=== PATIENT | female | born 1985 | race Caucasian/White ===

== ENCOUNTER 2016-03-08 13:56 | Inpatient (IN) | payer OTHER ==
[~2016-03-08] VITALS: Ht 157.5 cm; Wt 92.5 kg
[2016-03-08] MEDS ORDERED: Carboprost 250 mCg/mL Inj IM PRN (17:35)
[2016-03-08] MEDS ORDERED: fentaNYL-PF 50 mCg/mL 2 mL Inj IVPUSH PRN (17:35)
[2016-03-08] MEDS ORDERED: Oxytocin 10 Unit/mL Inj IM PRN (17:35)
[2016-03-08] MEDS ORDERED: Hemorrhage Kit, Post Partum XX ONE (17:35)
[2016-03-08] MEDS ORDERED: Sodium Chloride LOK Flush 10 mL Syringe IVFLUSH PRN (17:35)
[2016-03-08] MEDS ORDERED: Methylergonovine 0.2 mg/mL Inj IM PRN (17:35)
[2016-03-08] MEDS ORDERED: Oxytocin 30 Units/500 mL LR 30 UNITS in IV Premix 1 EACH IV PRN ×2 (17:35→20:00)
--- NOTE | 2016-03-08 17:39 | DRSVH ---
PROCEDURE: US OB BIOPHYSICAL PROFILE AND UMBILICAL DOPPLER INDICATIONS: NON REASSURING HEART TONES OUTSIDE/PRIOR DATING DATA: Last menstrual period (LMP): 06/06/15. LMP-based estimated date of delivery (SUMI): 03/12/16. First dating scan (date and location): 08/04/15. Estimated date of delivery (SUMI) from first dating scan: 03/08/16. TECHNIQUE: Real-time scanning was performed of the fetus for biophysical profile, with image documentation. Col or and pulse Doppler interrogation was also performed of the umbilical artery near its insertion into the placenta. COMPARISON: [facility], US, US OB>14 WKS ANATOMY COMP, 10/30/2015, 11:39. FINDINGS: General: A single living intrauterine gestation is present. Presentation: Vertex Placenta: Placental position is posterior fundal, without previa. OB-SOCIAL WORK JOB TITLES Ultrasound Procedure Report Summary Fetus Summary Heart Rate: 142 bpm Gestational Age from initial dating scan: 40 weeks, 0 days Findings(Amniotic Sac) Amniotic Fluid Index (BREANN): 7 cm Pelvis and Uterus Cervix Length (Mean): Not well seen Biophysical Profile Amniotic Fluid Volume: 2 Breathin Gross Body Movement: 2 Tone: 2 Biophysical Profile Sum Score: 8 Findings(Pelvic Vascular Structure) Umbilical Artery S/D Ratio: 2.0, 2.2, 1.9 IMPRESSION: 1. Single living intrauterine in vertex position redemonstrated. 2. Amniotic fluid index within normal limits. 3. Normal biophysical profile score 8/8. 4. Cord Doppler within normal limits with preserved diastolic flow. Dictated by: Bon Junior M.D. on 03/08/2016 at 17:37 Approved by: Bon Junior M.D. on 03/08/2016 at 17:37
[2016-03-08 17:42] LABS: Mean Corpuscular Volume 95.5 fL (81-100)
[2016-03-08] MEDS ORDERED: RANI150C4 PO (18:18)
[2016-03-08] MEDS: Lactated Ringer's 1,000 ML IV PRN (22:17)
--- NOTE | 2016-03-08 23:35 | HP ---
[address] [address] HISTORY AND PHYSICAL PATIENT: HAZEL ROTHMAN : 1985 MR#: [id number] ADMIT: 03/08/2016 JOB ID: [id number] HISTORY OF PRESENT ILLNESS: The patient is a 30-year-old, 1, para 0, at 40 weeks today, comes to Labor and Delivery with complaint of contractions. As per patient, contractions started gradually since last midnight and were becoming more frequent and intense. The patient reports good movements. She denies vaginal spotting, abnormal vaginal discharge. Her care was relatively uncomplicated. ALLERGIES: NKDA. PAST FAMILY HISTORY: Noncontributory. SOCIAL HISTORY: Patient denies alcohol, drugs and cigarette use. LABORATORIES: She is blood group and type O-positive. Varicella immune. Rubella nonimmune. Group B strep culture was negative. PHYSICAL EXAMINATION: While on the monitor, the patient is having contractions every 3-5 minutes. heart rate tracing is reactive with occasional mild variable decelerations with good recovery. Patient's vital signs: Blood pressure 132/76, respiratory rate 18, temperature 36.7. HEENT: PERRLA. Chest and lungs: Good respiratory effort. Clear bilaterally. Cardiovascular: Regular rate and rhythm. Abdomen: Gravid, nondistended, nontender, tender during contractions. Extremities: Trace pitting edema. MANAGER CRISIS exam: The cervix is 1 cm dilated, 80% effaced, station -2. The last time the patient was checked in the clinic on March 03, 2016, 5 days ago, the cervix was noneffaced and nondilated. The patient was re-examined two hours later and found to have diffuse effacement to 90%, same dilation, same station. heart rate tracing is reactive, but she is still having mild variable decelerations every few minutes lasting for less than 30 seconds. ASSESSMENT AND PLAN: The patient is a 30-year-old, 1, para 0, at 40 weeks today, comes in latent stage of labor. heart rate tracing reactive but showing mild occasional variable decelerations. The patient is being admitted for augmentation of labor. Different methods of cervical ripening were discussed with the patient. She agrees for cervical ripening balloon. Pain management will be provided with fentanyl. Epidural will be given as per patient's request. IV fluid started with Lactated Ringer's at 125 mL/h. Labs were sent. Will continue with continuous heart rate monitoring. Will expect spontaneous vaginal delivery. MTDD
[2016-03-09] MEDS ORDERED: Lactated Ringer's 500 ML IV ONE (04:27)
[2016-03-09] MEDS ORDERED: EPHEDrine Sulfate 50 mg/mL Inj IVPUSH PRN (04:30)
[2016-03-09] MEDS ORDERED: Atropine 1 mg/10 mL (Code) Syringe IVPUSH PRN (04:30)
[2016-03-09] MEDS ORDERED: Ondansetron 2 mg/mL 2 mL Inj IVPUSH PRN (04:30)
--- NOTE | 2016-03-09 05:07 | PCM.HPANE ---
Patient Data Surgeon Admitting Provider:Saad Rebolledo MD Attending Provider:Saad Rebolledo MD Primary Care Physician:Izzy Other Provider:Travis Kuhn Anesthesia Reason for Visit Term Early Labor TERM EARLY LABOR Ht/WT & BMI Body Mass Index Allergies Coded Allergies: No Known Allergies (Unverified , 03/08/16) Medications Reported Medications Ranitidine 150 Mg [id number] Mg PO DAILY Ref 0 03/08/16 Stop/Bang Risk Assessment Category Category 1A: Patient has history of documented sleep apnea, and HAS NOT received any narcotic, sedative or anesthesia administration during this stay. Category 1B: Patient has history of documented sleep apnea, and HAS received any narcotic , sedative or anesthesia administration during this stay Category 2: Patient has SUSPECTED Obstructive Sleep Apnea, and HAS received any narcotic , sedative or anesthesia administration during this stay. Category 3: Patient has SUSPECTED Obstructive Sleep Apnea and HAS NOT received narcotic, sedative or anesthesia administration during this stay. Category 4: Outpatient in Procedural Areas with known sleep apnea or who screen positive for High Risk via the STOP/BANG questionnaire. Exam Exam General Appearance: Alert, Oriented X3, Cooperative, No Acute Distress HEENT/AIRWAY: MP 2 Lungs: Clear to Auscultation Heart: Exam Unremarkable Meds/Labs/Diagnostics Labs Test 03/08/16 15:00 White Blood Count 15.0th/mm3 (3.8-10.1) Red Blood Count 4.40mil/mm3 (3.90-5.20) Hemoglobin 14.1g/dL (12.0-15.6) Hematocrit 42.0% (35.0-46.0) Mean Corpuscular Volume 95.5fL (81-100) Mean Corpuscular Hemoglobin 32.0pg (27.0-35.0) Mean Corpuscular Hemoglobin Concent 33.6% (32.0-37.0) Red Cell Distribution Width 13.0% (12.3-15.4) Platelet Count 181bil/L (150-400) Hold Purple Top Tube Received (Received) Plan Impression Patient chart reviewed, patient interviewed and anesthestic plan with risks, benefits, and alternatives discussed, and informed consent obtained. ASA Physical Status: ASA2 Mod Systemic Disease Anesthetic Plan: Epidural Bene/Risks/Altern/Consents: Yes HP Complete Prior to Induction: Yes Romero Yap MD Mar 09, 2016 04:27
[2016-03-09] MEDS ORDERED: EPHEDrine/NS 5 mg/mL 5 mL Syringe ONE (05:22)
[2016-03-09] MEDS: Lactated Ringer's 1,000 ML IV SCH ×2 (07:49→14:20)
[2016-03-09] MEDS ORDERED: Sodium Chloride LOK Flush 10 mL Syringe IVFLUSH SCH (08:30)
[2016-03-09] MEDS: Lactated Ringer's 1,000 ML IV PRN (09:28)
--- NOTE | 2016-03-09 11:13 | PCM.PNOBIP ---
Subjective Date of Service Mar 09, 2016 Delivery plan: Spontaneous Vaginal Delivery Subjective 30 year old at 40 weeks, 1 day (SUMI by 9 week US 03/08/16, SUMI by LMP ), Presented to the [facility] for augmentation of labor. Pt is GBS negative, O positive and rubella non immune. Pt presented on the morning of 03/08/2016 at 02 :50. She had 5-8 min between contractions which were lasting 30-50 seconds. At that time the FHR was baseline at 135 with moderate variability and category 1 tracing. Fentanyl was given and augmentation of labor was initiated with a cervical balloon. At 04:13 Balloon fell out while Pt was using the toilet. At that time she was 5 cm and had positive rupture of her membranes producing a small amount of fluid with no blood. Contractions remained 5-10 min apart and were lasting 60 seconds. Pt received an epidural a little before 5 am, at 05: 55 Pt's baby had a period prolonged deceleration lasting approximally 13 minuets. HR was reported to have fallen to 60 and mother blood pressure dropped to 84/52. A Amnio infusion was given at 500ml followed by a 150ml/hr drip. Fetus had a couple more brief late decelerations with no more reported events at time of documentation. At this time mother also received ephedrine with stabilization of her hemodynamic state. At time of dictation BP: 118/68 and HR 64, FHR 148 with category 1 tracing. Oxytocin was initiated a little before 7am to help progress labor. US Biophysical profile showed vertex presentation, posterior fundal placental position without previa. The amniotic fluid index and cord Doppler was within normal limits. Pain Management: Epidural, Good Pain Control Group B Strep Results: Negative Rubella: Non-Immune Blood Type: O RH Type: Positive Labs Laboratory Tests 03/08/16 15:00: White Blood Count 15.0, Red Blood Count 4.40, Hemoglobin 14.1, Hematocrit 42.0, Mean Corpuscular Volume 95.5, Mean Corpuscular Hemoglobin 32.0, Mean Corpuscular Hemoglobin Concent 33.6, Red Cell Distribution Width 13.0, Platelet Count 181, Hold Purple Top Tube Received Exam Vital Signs Vital Signs 5-10 min between contractions, lasting 60 seconds. VS: BP: 118/68, HR, 64, RR 20. Vital Signs: VS reviewed, stable Heart Tracings Heart Tones Baseline 140 bpm Heart Rate Variability: Moderate (6-25) Heart Rate Category: I Tocometry/IUPC Contraction frequency in minutes: 5-10 MVUs: Sterile Vaginal Exam Cervical Dilation: 5 cms Cervical Effacement: 50 % Exam Abdomen: Fundus firm Extremities: Normal pulses, No tenderness/swelling Lungs: Clear to Auscultation, Normal Air Movement Heart: Exam Unremarkable, Regular Rate/Rhythm General: Alert, Oriented X3, Cooperative, No Acute Distress OB Intrapartum Assessment/Plan Assessment 30 female in active labor. Anticipate vaginal delivery today. Intrapartum plan: Continue expected management, Start pitocin Intrapartum Pain Management: Epidural Pain Evaluation: Adequate Pain Control Attending Statement The patient was seen and examined together with Dr. alonzo on 03/09/2016 and I agree with the history, exam and plan as outlined in the note above. / MD ARMANDO Rutherford GILES A DO Mar 09, 2016 07:38 Yonathan Fernandes MD Apr 14, 2016 16:33
[2016-03-09] MEDS: fentaNYL 2 mCg/mL-Bupiv 0.125% 100 ML EPIDURAL SCH ×2 (11:20→16:47)
--- NOTE | 2016-03-09 20:46 | PCM.OBVAG ---
Vaginal Delivery Date of Service Mar 09, 2016 Pre Operative Diagnosis Pre Operative Diagnosis 1. 40w1d gestation 2. Induction of labor Post Operative Diagnosis Post Operative Diagnosis Same Procedure Obstetical Procedure: Normal Spontaneous Vaginal Delivery Ordinary Seaman/Astrophysics Teacher Provider and Astrophysics Teacher: Yonathan Fernandes MD Resident: Hoda Tao DO PGY1 Indication for Procedure Indication for Procedure Iqra is a 30 y/o G1 who presented to L&D on 03/08/2016 at 40 weeks gestation complaining of contractions. She was not in active labor, but noted to have variable decelerations on monitoring. Decision was made for admission and induction. She had a cervical ripening with a balloon. Early am of 03/09 it came out. She had an epidural placed then AROM performed. She had variables and following drop in blood pressure after epidural, had a prolonged deceleration recovered with Dr. Rebolledo with ephedrine. She then had amnioinfusion initiated. Tracing recovered. Pitocin initiated. She progressed normally through labor and was found to be complete around 17:30. Findings Findings: No vaginal, cervical or perineal lacerations. Bilateral small labial lacerations noted. Obstetrical Findings: , Cord (3 Vessel), Weight ( 3465 grams), Presentation (BARBRA), 1 minute (8), 5 minutes (9), Placenta (Intact/ Normal) Analgesia/Medications Obstetrical Anesthesia: Epidural Procedure Details Procedure Details A sterile drape was placed under patient's buttocks. With expulsive efforts, she delivered a head BARBRA over intact perineum. With additional expulsive effort, shoulders did not delivery. Allowing for better restitution revealed transverse shoulders. With additional expulsived efforts with baby turned so the right shoulder was anterior and then the baby quickly delivered. Minimal to almost no traction was used. The cord was cut and clamped after about 20sec and handed to waiting nurse. Cord blood collected. IV pitocin started. The placenta delivered spontaneously intact. Uterine message performed and full bladder and brisk bleeding noted, then uterus firmed. Betadine used for sterilization, then straight catheterization performed. No perineal, vaginal or cervical lacerations noted. Bilateral small labial lacerations with some bleeding noted. They were repaired using 3-0 vicryl. The patient tolerated the procedure well. She and baby were stable in the room. Sponge, needle and instrument counts correct x 2 at the close of the procedure. Specimen Placenta was NOT sent. IV Intake/Output Catheters: Straight (about 150mL) Blood Loss & Administration Estimated Blood Loss: 400 (mL) Post Procedure Plan Post delivery Condition: Mom stable, Baby stable to nursery Yonathan Fernandes MD Mar 09, 2016 20:46
[2016-03-09] MEDS ORDERED: Lactated Ringer's 1,000 ML IV SCH (20:47)
[2016-03-09] MEDS ORDERED: Oxytocin 10 Unit/mL Inj IM PRN (20:50)
[2016-03-09] MEDS ORDERED: Oxytocin 30 Units/500 mL LR 30 UNITS in IV Premix 1 EACH IV PRN (20:50)
[2016-03-09] MEDS ORDERED: Witch Hazel-Glycerin Pads TOPICAL PRN (20:50)
[2016-03-09] MEDS ORDERED: HYDROcodone-APAP 5-325 mg Tablet PO PRN (20:50)
[2016-03-09] MEDS ORDERED: LANOlin HPA 7 Gm Ointment TOPICAL PRN (20:50)
[2016-03-09] MEDS ORDERED: Measles-Mumps-Rubella Vaccine 0.5 mL Inj SUBQ ONE (20:50)
[2016-03-09] MEDS ORDERED: Carboprost 250 mCg/mL Inj IM PRN (20:50)
[2016-03-09] MEDS ORDERED: Benzocaine (Dermoplast) 20% 60 Gm Spray TOPICAL PRN (20:50)
[2016-03-09] MEDS ORDERED: Hemorrhage Kit, Post Partum XX ONE (20:50)
[2016-03-09] MEDS ORDERED: Methylergonovine 0.2 mg/mL Inj IM PRN (20:50)
--- NOTE | 2016-03-09 21:52 | PCM.ANEP1 ---
Bad tablePACU Phase 1 Assessment Anesthetic Administered: Epidural Level of Alertness: Awake, talking Pain: No Pain Scale Score: 5 Nausea or Vomiting: No Oxygen Delivery: Room Air Lungs: Clear to Auscultation, Normal Air Movement
--- NOTE | 2016-03-09 21:52 | PCM.ANEP2 ---
Post Anesthesia Evaluation ASA/CMS Post Anesthesia Date of Service: Mar 09, 2016 VS in Patient's Normal Range?: Yes Resp Stable; Airway Patent?: Yes CV Function & Hydration Stable: Yes Mental Status Recovered?: Yes Pain control Satisfactory?: Yes N/V Control Satisfactory?: Yes Amadou Neves MD Mar 09, 2016 21:52
--- NOTE | 2016-03-10 07:59 | PCM.PNOBPP ---
Subjective Date of Service Mar 10, 2016 Post : Spontaneous Vaginal Delivery Subjective 30yo G1 now P1 delivered a term via normal spontaneous vaginal delivery. Reports doing well this morning with some bleeding and the occasional gush with movement. She is able to get up on her own and is only taking ibuprofen for pain. Lochia: Heavy Pain Management: PO pain meds, Good Pain Control Gastrointestinal: Good Appetite, No N/V, Passing Flatus Postop Activity: Ambulating Independently Group B Strep Results: Negative Rubella: Non-Immune Blood Type: O RH Type: Positive Labs Laboratory Tests 03/08/16 15:00: White Blood Count 15.0, Red Blood Count 4.40, Hemoglobin 14.1, Hematocrit 42.0, Mean Corpuscular Volume 95.5, Mean Corpuscular Hemoglobin 32.0, Mean Corpuscular Hemoglobin Concent 33.6, Red Cell Distribution Width 13.0, Platelet Count 181, Hold Purple Top Tube Received Exam Vital Signs Vital Signs: VS reviewed, stable Exam Abdomen: Fundus firm, Abdomen soft : Voiding without difficulty Extremities: Normal pulses, Edema 1+ Lungs: Clear to Auscultation, Normal Air Movement Heart: Regular Rate/Rhythm, No Murmurs/Rubs/Gallops General: Alert, Oriented X3 OB Post Assessment/Plan Assessment 30yo G1 now P1 delivered a term infant via normal spontaneous vaginal delivery. Doing well, will continue to monitor patient for bleeding. Problems: (1) (normal spontaneous vaginal delivery) Plan: normal care Status: Acute ICD Code: O80 (2) Qualifiers: Weeks of gestation: 18 weeks Qualified Code: Z3A.18 - 18 weeks gestation of Status: Resolved ICD Code: Z33.1 (3) Rubella nonimmune status, delivered, current hospitalization Plan: MMR vaccine given Status: Acute ICD Code: O99.89 Pain Management: Ibuprofen Pain Evaluation: Adequate Pain Control Post plan: Continue routine post care, Anticipate discharge home today Plan: Monitor for continued or abnormal bleeding, repeat CBC without abnormal drop in hemaglobin, discharge home. JOYCE ESCAMILLA DO Mar 10, 2016 07:20
[2016-03-10 08:20] LABS: Mean Corpuscular Hemoglobin 31.6 pg (27.0-35.0)
[2016-03-10] MEDS ORDERED: ASCO-294 PO (08:56)
[2016-03-10] MEDS ORDERED: FERR-83 PO (08:56)
[2016-03-10] MEDS ORDERED: DOCU-41 PO (08:56)
[2016-03-10] MEDS ORDERED: IBUP800T28 PO (08:56)
--- NOTE | 2016-03-10 12:42 | PCM.DIOB ---
Obstetrical Disch Instruction Date of Service: Mar 10, 2016 Dates of Hospitalization Date of Hospital Admission Mar 08, 2016 at 17:35 Providers Admitting Physician: Saad Rebolledo MD Primary Care Physician: Noptheresa Attending Physician: Saad Rebolledo MD Discharge Diagnosis Discharge Diagnosis Normal Spontaneous Vaginal Delivery Post Operative diagnosis Normal Spontaneous Vaginal Delivery Problems: Diet Discharge Diet: No restrictions Activity Discharge Activity-General: Pelvic Rest for 6 weeks, Balance rest and activity Dressing and Incisional Care Hygiene: May shower Additional Instructions Discharge Instructions Please take the iron and vitamin c together for your anemia for the next 30 days. Continue to take your vitamin as well. Iron can give you constipation so you have also been given a prescription for docusate to keep you regular. Be sure to follow up in 6 weeks at [facility]. Pelvic rest for 6 weeks (nothing per vagina including intercourse, tampons) If you have a fever greater than 100.4, please call [facility]. There is always someone procurement professional logistics to talk to. If you have an increase in bleeding, call [facility]. If you have a lot of bleeding suddenly, especially if you have symptoms of dizziness & weakness with it, get emergency help. When you see [facility] in two weeks, you will be informed of the results of all the labs. If you start experiencing extreme depression, especially if you feel that you are a danger to yourself or your family, seek emergency help. You have been through a lot -- BE SURE TO TAKE CARE OF YOURSELF. Follow Up Plan Follow-up Provider (F9): Yonathan Fernandes MD Follow-up appointment: Weeks (6) JOYCE ESCAMILLA DO Mar 10, 2016 09:04
--- NOTE | 2016-03-10 12:59 | PCM.DC.OB ---
Obstetrical Discharge Summary Date of Service Mar 10, 2016 Date of hospital admission Mar 08, 2016 at 17:35 Date of Discharge: Mar 10, 2016 Providers Admitting Physician: Saad Rebolledo MD Primary Care Physician: Izzy Attending Physician: Saad Rebolledo MD Diagnosis at Time of Discharge Normal Spontaneous Vaginal Delivery Problems: (1) (normal spontaneous vaginal delivery) Plan: normal care Status: Acute ICD Code: O80 (2) Qualifiers: Weeks of gestation: 40 weeks Qualified Code: Z3A.40 - 40 weeks gestation of Status: Resolved ICD Code: Z33.1 Invasive procedures Normal Spontaneous Vaginal Delivery Date of Procedure: Mar 09, 2016 Brief History and Physical: The patient is a 30-year-old, 1, para 0, at 40 weeks on day of admission , comes to Labor and Delivery with complaint of contractions. care was relatively uncomplicated. Physical exam on day of discharge: Vital signs stable and normal. Well-appearing, well-nourished heart regular rate and rhythm no murmurs. Lungs clear to auscultation bilaterally with good air movement abdomen soft, uterine fundus firm. 1+ edema in bilateral lower extremities. Appropriate mood and affect. Hospital Course: 30-year-old G1 presented to [facility] with complaints of contractions. heart tracing was showing mild variable decelerations. She was admitted for augmentation of labor including cervical ripening with balloon dilation and Pitocin. Labor progressed, she delivered a term via spontaneous vaginal delivery. course was normal. She will be discharged to board status with eventual return home. Ascorbate Calcium (Vitamin C) 500 Mg Tablet 500 MG PO DAILY Prescribed by: JOYCE ESCAMILLA DO Docusate Sodium (Colace) 100 Mg Capsule 100 MG PO DAILY PRN PRN For Constipation Prescribed by: JOYCE ESCAMILLA DO Ferrous Sulfate (Ferrous Sulfate) 325 Mg Tablet 325 MG PO DAILY Prescribed by: JOYCE ESCAMILLA DO Ibuprofen (Ibuprofen) 800 Mg Tablet 800 MG PO Q6H PRN PRN For Pain Prescribed by: JOYCE ESCAMILLA DO Ranitidine (Ranitidine) 150 Mg Capsule 150 MG PO DAILY (Reported) Discharge Medications: 1. Ibuprofen 2. Colace 3. Iron 4. Vitamin C Disposition Discharge to boarder Follow-[facility] plan [facility] Discharge Diet: No restrictions Discharge Activity-General: Pelvic Rest for 6 weeks, Balance rest and activity Patient instructions Please take the iron and vitamin c together for your anemia for the next 30 days. Continue to take your vitamin as well. Iron can give you constipation so you have also been given a prescription for docusate to keep you regular. Be sure to follow up in 6 weeks at [facility]. Pelvic rest for 6 weeks (nothing per vagina including intercourse, tampons) If you have a fever greater than 100.4, please call [facility]. There is always someone paper cone machine operator to talk to. If you have an increase in bleeding, call [facility]. If you have a lot of bleeding suddenly, especially if you have symptoms of dizziness & weakness with it, get emergency help. When you see [facility] in two weeks, you will be informed of the results of all the labs. If you start experiencing extreme depression, especially if you feel that you are a danger to yourself or your family, seek emergency help. You have been through a lot -- BE SURE TO TAKE CARE OF YOURSELF. JOYCE ESCAMILLA DO Mar 10, 2016 12:59
[2016-03-10] MEDS ORDERED: Measles-Mumps-Rubella Vaccine 0.5 mL Inj SUBQ ONE (18:15)
[2016-03-10 18:54] LABS: Mean Corpuscular Hemoglobin 31.7 pg (27.0-35.0); Mean Corpuscular Volume 98.2 fL (81-100)
--- NOTE | 2016-03-10 19:37 | PCM.DIOB ---
MIKE HERNANDEZ DO 03/10/16 1937: Obstetrical Disch Instruction Dates of Hospitalization Date of Hospital Admission Mar 08, 2016 at 17:35 Providers Admitting Physician: Saad Rebolledo MD Primary Care Physician: Nopcp Attending Physician: Saad Rebolledo MD Discharge Diagnosis Discharge Diagnosis Normal Spontaneous Vaginal Delivery Post Operative diagnosis Normal Spontaneous Vaginal Delivery Problems: (1) (normal spontaneous vaginal delivery) Status: Acute ICD Code: O80 (2) Qualifiers: Weeks of gestation: 18 weeks Qualified Code: Z3A.18 - 18 weeks gestation of Status: Resolved ICD Code: Z33.1 Diet Discharge Diet: No restrictions Activity Discharge Activity-General: Pelvic Rest for 6 weeks, Balance rest and activity Dressing and Incisional Care Hygiene: May shower Additional Instructions Discharge Instructions Please take the iron and vitamin c together for your anemia for the next 30 days. Continue to take your vitamin as well. Iron can give you constipation so you have also been given a prescription for docusate to keep you regular. Be sure to follow up in 6 weeks at [facility]. Pelvic rest for 6 weeks (nothing per vagina including intercourse, tampons) If you have a fever greater than 100.4, please call [facility]. There is always someone cleaning professional to talk to. If you have an increase in bleeding, call [facility]. If you have a lot of bleeding suddenly, especially if you have symptoms of dizziness & weakness with it, get emergency help. When you see [facility] in two weeks, you will be informed of the results of all the labs. If you start experiencing extreme depression, especially if you feel that you are a danger to yourself or your family, seek emergency help. You have been through a lot -- BE SURE TO TAKE CARE OF YOURSELF. Follow Up Plan Follow-up Provider (F9): Yonathan Fernandes MD Follow-up appointment: Weeks (6) Kip Thomas MD 03/15/16 0824: Obstetrical Disch Instruction Attending Statement The patient was seen and examined together with Dr. Mike Hernandez and I agree with the history, exam and plan as outlined in the note above. MIKE HERNANDEZ DO Mar 10, 2016 19:37 Kip Thomas MD Mar 15, 2016 08:24
[2016-03-10 19:43] VITALS: BP 121/76; PULSE 87; RESP 16
--- NOTE | 2016-03-10 22:03 | PCM.DC.OB ---
Obstetrical Discharge Summary Date of Service Mar 10, 2016 Date of hospital admission Mar 08, 2016 at 17:35 Date of Discharge: Mar 10, 2016 Providers Admitting Physician: Saad Rebolledo MD Primary Care Physician: Izzy Attending Physician: Saad Rebolledo MD Diagnosis at Time of Discharge Normal Spontaneous Vaginal Delivery Problems: (1) (normal spontaneous vaginal delivery) Plan: normal care Status: Acute ICD Code: O80 (2) Qualifiers: Weeks of gestation: 18 weeks Qualified Code: Z3A.18 - 18 weeks gestation of Status: Resolved ICD Code: Z33.1 Invasive procedures Normal Spontaneous Vaginal Delivery Brief History and Physical: The patient is a 30-year-old, 1, para 0, at 40 weeks on day of admission , comes to Labor and Delivery with complaint of contractions. care was relatively uncomplicated. Physical exam on day of discharge: Vital signs stable and normal. Well-appearing, well-nourished heart regular rate and rhythm no murmurs. Lungs clear to auscultation bilaterally with good air movement abdomen soft, uterine fundus firm. 1+ edema in bilateral lower extremities. Appropriate mood and affect. Hospital Course: 30-year-old G1 [place] [facility] [place] with complaints of contractions. heart tracing was showing mild variable decelerations. She was admitted for augmentation of labor including cervical ripening with balloon dilation and Pitocin. Labor progressed, she delivered a term infant via spontaneous vaginal delivery. course was normal with the exception of some concern for continued bleeding. Bleeding improved within 24 hours . Patient was discharged in Stable condition to follow baby to [facility]. Ascorbate Calcium (Vitamin C) 500 Mg Tablet 500 MG PO DAILY Prescribed by: JOYCE ESCAMILLA DO Docusate Sodium (Colace) 100 Mg Capsule 100 MG PO DAILY PRN PRN For Constipation Prescribed by: JOYCE ESCAMILLA DO Ferrous Sulfate (Ferrous Sulfate) 325 Mg Tablet 325 MG PO DAILY Prescribed by: JOYCE ESCAMILLA DO Ibuprofen (Ibuprofen) 800 Mg Tablet 800 MG PO Q6H PRN PRN For Pain Prescribed by: JOYCE ESCAMILLA DO Ranitidine (Ranitidine) 150 Mg Capsule 150 MG PO DAILY (Reported) Discharge Medications: 1. Ibuprofen 2. Colace 3. Iron 4. Vitamin C Disposition Discharge home Follow-[facility] plan [facility] Discharge Diet: No restrictions Discharge Activity-General: Pelvic Rest for 6 weeks, Balance rest and activity Patient instructions Please take the iron and vitamin c together for your anemia for the next 30 days. Continue to take your vitamin as well. Iron can give you constipation so you have also been given a prescription for docusate to keep you regular. Be sure to follow up in 6 weeks at [facility]. Pelvic rest for 6 weeks (nothing per vagina including intercourse, tampons) If you have a fever greater than 100.4, please call [facility]. There is always someone satellite communications engineer to talk to. If you have an increase in bleeding, call [facility]. If you have a lot of bleeding suddenly, especially if you have symptoms of dizziness & weakness with it, get emergency help. When you see [facility] in two weeks, you will be informed of the results of all the labs. If you start experiencing extreme depression, especially if you feel that you are a danger to yourself or your family, seek emergency help. You have been through a lot -- BE SURE TO TAKE CARE OF YOURSELF. JOYCE ESCAMILLA DO Mar 10, 2016 22:03
== END 2016-03-10 20:30 | disposition home or self-care (01) | DRG 560 ==
LOC: FBCO 13:56 → FBC 17:35
PROVIDERS: ADMIT Legal Medicine; ATTEND Legal Medicine
PROC: 0U7C7ZZ Dilation of Cervix, Via Natural or Artificial Opening (ICD-10-PCS; 2016-03-08)
PROC: 10E0XZZ Delivery of Products of Conception, External Approach (ICD-10-PCS; principal; 2016-03-09)
PROC: 0UQMXZZ Repair Vulva, External Approach (ICD-10-PCS; 2016-03-09)
PROC: 10907ZC Drainage of Amniotic Fluid, Therapeutic from Products of Conception, Via Natural or Artificial Opening (ICD-10-PCS; 2016-03-09)
DX: O71.82 Other specified trauma to perineum and vulva (principal); O76 Abnormality in fetal heart rate and rhythm complicating labor and delivery; Z3A.40 40 weeks gestation of pregnancy; Z37.0 Single live birth

== ENCOUNTER 2016-04-25 09:47 | Emergency (ER) | payer OTHER ==
[~2016-04-25] VITALS: Ht 157.5 cm; Wt 84.1 kg
[~2016-04-25 09:47] MED LIST: ASCO-294 PO; DOCU-41 PO; FERR-83 PO; IBUP800T28 PO; RANI150C4 PO
[2016-04-25 09:49] VITALS: BP 144/89; PULSE 71; RESP 22; O2SAT 98
[2016-04-25] MEDS ORDERED: 0.9% Sodium Chloride 1,000 ML IV ONE (09:56)
--- NOTE | 2016-04-25 09:56 | ED.REPORT ---
HPI-Abd Pain F Under 40 Date of Service Apr 25, 2016 ED Provider: Lenard Ceballos MD Patient is a 30 year old female who presents to the ED complaining of abdominal cramping onset this morning. Associated symptoms include R flank pain, dysuria, diarrhea, urinary urgency, and vomiting. She reports that her pain is localized mostly to the R side and that she has been unable to get comfortable (fidgeting about due to pain). She denies fever, hematuria, or any other symptoms. She tried to take Ibuprofen at home but vomited it up. She gave 6 weeks ago and is currently . Nursing Notes Stated Complaint: ABDOMINAL PAIN/CRAMPING Chief Complaint: Female Abdominal Pain Nursing Notes Reviewed: Yes Allergies: Coded Allergies: No Known Allergies (Unverified , 03/08/16) Scheduled Vit No.124/Iron/FA ( Vitamin Tablet) 27 Mg Iron-800 Mcg Tablet 1 EACH PO DAILY Scheduled PRN Hydrocodone-Acetaminophen 5-325 mg (Hydrocodone-Acetaminophen 5-325 mg) 1 Each Tablet 1-3 TABLET PO Q4H PRN PRN For Pain Ondansetron ODT (Zofran ODT) 4 Mg Tablet 4 MG PO Q4H PRN PRN For Nausea General Time Seen by MD: 09:55 Chief Complaint Abdominal pain Hx Obtained From: Patient Arrived By: Walk-in Sudden in Onset?: Yes Similar Sx Previous: No Past Medical History Past Medical History Healthy vaginal delivery without complications 6 weeks ago Past Surgical History Denies Smoking History Unknown if Ever Smoker Ambulatory Status Independent Review of Systems Constitutional: Denies: Fever GI: Reports: Abdominal pain, Diarrhea, Vomiting Female: Reports: Dysuria, Flank pain (R), Urinary frequency, Denies: Hematuria Complete sys rev & neg: except as marked. Physical Exam Initial Vital Signs Vital Signs (First) Date Time Temp Pulse Resp B/P Pulse Ox O2 Delivery O2 Flow Rate FiO2 04/25/16 09:49 36.2 71 22 144/89 98 Room Air Initial VS: Reviewed Head / Eyes: Atraumatic, Normocephalic Neck: Full range of motion Skin: Warm, Dry Neurologic: Alert, Oriented, Nonfocal Psychiatric: Mood/affect normal, Behavior normal, Normal thought content General/Constitutional: Awake, Alert, Well developed Respiratory / Chest: No respiratory distress Cardiovascular: Heart rate NL Abdomen: Soft, No guarding Flank / Spine / Paraspinal: Positive: Flank tender R, Negative: Flank tender L Interpretation & Diagnostics Lab Results Interpretation Result Diagram: 04/25/16 1010 04/25/16 1010 Test 04/25/16 10:06 04/25/16 10:10 Urine Color Straw (YELLOW) Urine Appearance Hazy (CLEAR,HAZY) Urine pH 5.5 (5.0-8.0) Urine Specific [place] 1.032 (1.003-1.035) Urine Protein Negativemg/dL (NEG,TRACE) Urine Glucose (UA) Negativemg/dL (NEGATIVE) Urine Ketones Negativemg/dL (NEGATIVE) Urine Occult Blood Small (NEGATIVE) Urine Nitrite Negative (NEGATIVE) Urine Bilirubin Negative (NEGATIVE) Urine Urobilinogen Normalmg/dL (NORMAL) Urine Leukocyte Esterase Negative (NEGATIVE) Urine RBC 0-2/hpf (0-2) Urine WBC 0-5/hpf (0-5) Urine Epithelial Cells Occasional/hpf (NONE-MOD) Urine Crystals Amorphous urates (NONE Urine Bacteria None/hpf (NONE-FEW) Urine Hyaline Casts None/lpf (NONE) Urine Granular Casts None seen (NONE SEEN) Urine Waxy Casts None seen (NONE SEEN) Urine Red Blood Cell Casts None seen (NONE SEEN) Urine White Blood Cell Casts None seen (NONE SEEN) Urine Mucus Present (None Seen) Urine Trichomonas None seen (NONE SEEN) Urine Yeast None (NONE SEEN) Urinalysis Comment None Urine Culture Reflexed Not indicated White Blood Count 11.0th/mm3 (3.8-10.1) Red Blood Count 4.29mil/mm3 (3.90-5.20) Hemoglobin 13.0g/dL (12.0-15.6) Hematocrit 40.0% (35.0-46.0) Mean Corpuscular Volume 93.2fL (81-100) Mean Corpuscular Hemoglobin 30.3pg (27.0-35.0) Mean Corpuscular Hemoglobin Concent 32.5% (32.0-37.0) Red Cell Distribution Width 12.5% (12.3-15.4) Platelet Count 212bil/L (150-400) Neutrophils (%) (Auto) 79.3% (40-74) Lymphocytes (%) (Auto) 17.7% (14-46) Monocytes (%) (Auto) 2.6% (4-12) Eosinophils (%) (Auto) 0% (0-5) Basophils (%) (Auto) 0.2% (0-3) Sodium Level 137mEq/L (134-144) Potassium Level 4.4mEq/L (3.5-5.2) Chloride Level 104mEq/L (97-108) Carbon Dioxide Level 17mmol/L (18-29) Blood Urea Nitrogen 20mg/dL (6-20) Creatinine 0.74mg/dL (0.57-1.00) Estimat Glomerular Filtration Rate 134mL/min (>59) Glucose Level 118mg/dL (60-99) Calcium Level 9.5mg/dL (8.5-10.1) Magnesium Level 2.0mg/dL (1.6-2.6) Total Bilirubin 0.3mg/dL (0.0-1.2) Aspartate Amino Transf (AST/SGOT) 27U/L (0-50) Alanine Aminotransferase (ALT/SGPT) 48U/L (0-32) Alkaline Phosphatase 86U/L (25-150) Total Protein 7.2g/dL (6.4-8.4) Albumin 4.5g/dL (3.4-5.0) Lipase 48U/L (13-60) Hold [place] Top Tube Received (Received) CT Abd / Pelvis Interpretation CT KUB: IMPRESSION: 1. 5 x 3 x 3 mm right ureterovesical junction stone causes mild right hydroureteronephrosis. No additional kidney stones. 2. Multiple small dependent calcified gallstones. 3. Unilateral left L5 pars defect. Dictated by: Kevan Gonzalez M.D. on 04/25/2016 at 11:41 Approved by: Kevan Gonzalez M.D. on 04/25/2016 at 11:47 Study type: Abdominal CT no contrast Interpretation / Wet Read by: Interpret - Radiologist Re-Eval/Medical Decision Re-Evaluation/Progress #1: Time of Eval: 11:23 Re-Evaluation/Progress Note: Rechecked patient. She is feeling better but is still in pain. Re-Evaluation/Progress #2: Time of Eval: 11:44 )( Re-Eval Abdomen: Soft Re-Evaluation/Progress Note: Rechecked patient. Discussed imaging results. Discussed plan for discharge. Patient understands and agrees with plan. All questions addressed at this time. Counseled Regarding: Diagnosis, Lab results, Need for follow-up, When/why to return to ED Discharge & Departure Primary Impression: Ureterolithiasis Disposition: Home Discharge Condition All VS Reviewed: Yes Condition: Stable Patient Instructions: Renal Colic (ED) Additional Instructions: Your pain is caused from a kidney stone on the right side. The stone measures about 5 mm. The passing of the stone is usually only painful while the stones within the ureter (the tube that runs from the kidney to the bladder) your stone is nearly in the bladder now. You should pass it in the coming hours most likely. If the pain persists tomorrow or Tuesday, you should see your doctor in the clinic. If in the meantime you develop uncontrolled pain or high fever or excessive vomiting, return to the emergency department. Drink lots of oral fluid and take ibuprofen 800 mg every 8 hours. If you need additional pain medication, take hydrocodone/APAP 1-3 tablets every 4 hours as needed for severe pain. This latter medication should only be used while at home and he should not drive while taking it. Take the strong pain medication in addition to the ibuprofen not instead of it. Use ondansetron as needed for nausea. Referrals: NOPCP (PCP) Scribe Attestation Portions of this note were transcribed by Janna Nuno. I, Dr. Ceballos personally performed the history, physical exam and medical decision-making; I reviewed and confirmed the accuracy of the information in the transcribed note. Signed by: Janna Nuno 04/25/2016, 1153 Lenard Ceballos MD Apr 25, 2016 09:56 JANNA NUNO Apr 25, 2016 10:08
[2016-04-25] MEDS ORDERED: Ondansetron 2 mg/mL 2 mL Inj IVPUSH PRN ×2 (10:00→11:25)
[2016-04-25 10:25] LABS: BASOPHILS % (AUTO) 0.2 % (0-3); EOSINOPHILS % (AUTO) 0 % (0-5); MONOCYTES % (AUTO) 2.6 % (4-12); Mean Corpuscular Hemoglobin 30.3 pg (27.0-35.0); Mean Corpuscular Volume 93.2 fL (81-100); NEUTROPHILS % (AUTO) 79.3 % (40-74); Platelet Count 212 bil/L (150-400)
[2016-04-25] MEDS ORDERED: PREN-148 PO (11:10)
[2016-04-25 11:17] LABS: APPEARANCE,URINE HAZY (CLEAR,HAZY); COLOR,URINE STRAW (YELLOW); OCCULT BLOOD,URINE SMALL (NEGATIVE); PH,URINE 5.5 (5.0-8.0); UROBILINOGEN,URINE NORMAL (NORMAL)
[2016-04-25] MEDS ORDERED: HYDROmorphone 0.5 mg/0.5 mL iSecure Syringe IVPUSH PRN (11:25)
--- NOTE | 2016-04-25 11:49 | DRSVH ---
PROCEDURE: CT KUB ([id number]) INDICATIONS: 30 year-old female with right flank pain since this morning. TECHNIQUE: Noncontrast 5 mm thick sections acquired from the diaphragms to the symphysis. 5 mm thick coronal an d sagittal reformats were then performed. For radiation dose reduction, the following was used: aut omated exposure control, adjustment of mA and/or kV according to patient size. COMPARISON: None. FINDINGS: Image quality: Excellent. Lung bases: Lung bases are clear. Heart size is normal. Urinary system: Both kidneys are normal in size. No kidney stones. There is mild right hydrouretero nephrosis and perinephric inflammatory fat stranding. On axial image 73, 5 x 3 x 3 mm stone lies at t he right ureterovesical junction. Bladder wall thickness is normal; no calcified bladder stones. Other solid organs: Liver and spleen are normal in size. Gallbladder contains several small depende nt calcified gallstones. Pancreas is normal in contours. No adrenal nodules. Peritoneum and bowel: Unenhanced bowel loops demonstrate normal wall thickness and caliber. The imelda endix appears normal. No free fluid or air. Nodes and vessels: No retroperitoneal or mesenteric adenopathy by size criteria. Aorta and inferior vena cava are normal in caliber. Abdominal wall: No ventral hernias. Pelvis: No free pelvic fluid. No inguinal hernias or adenopathy. Uterus and ovaries are normal in s ize. Bones: No suspicious bony lesions. No vertebral body compression fractures. Unilateral left L5 pars defect is present. IMPRESSION: 1. 5 x 3 x 3 mm right ureterovesical junction stone causes mild right hydroureteronephrosis. No addit ional kidney stones. 2. Multiple small dependent calcified gallstones. 3. Unilateral left L5 pars defect. Dictated by: Kevan Gonzalez M.D. on 04/25/2016 at 11:41 Approved by: Kevan Gonzalez M.D. on 04/25/2016 at 11:47
[2016-04-25] MEDS ORDERED: ONDA4TAB9 PO (11:51)
[2016-04-25] MEDS ORDERED: HYDR-4003 PO (11:51)
[2016-04-25 12:01] VITALS: BP 145/89; PULSE 69; O2SAT 96
== END 2016-04-25 11:58 | disposition home or self-care (01) ==
LOC: SED 09:47
DX: N20.1 Calculus of ureter (principal)
CPT/HCPCS: 36415; 74176; 80053; 81000; 83690; 83735; 85025; 96361; 96374; 96375; 99285; J2405; J7030